=== PATIENT | female | born 1975 | race Caucasian/White ===

== ENCOUNTER 2022-05-16 19:19 | Emergency (ER) | payer MEDICAID, OTHER ==
[~2022-05-16] VITALS: Ht 172.7 cm; Wt 54.4 kg
[2022-05-16 20:13] LABS: Basophils # (auto) 0.2 10 ^3/uL (0-0.2); Basophils % (auto) 1.6 % (0.0-2.0); Eosinophils # (auto) 0.1 10 ^3/uL (0-0.8); Eosinophils % (auto) 1.1 % (0.0-7.0); Hematocrit 44.6 % (36.0-46.0); Hemoglobin 14.7 g/dL (12.2-16.2); Lymphocytes # (auto) 1.6 10 ^3/uL (0.4-5.4); Lymphocytes % (auto) 13.4 % (10.0-50.0); Mean Corpuscular Hemoglobin 27.4 pg (28.0-32.0); Mean Corpuscular Hgb Conc. 32.9 g/dL (32.0-36.0); Mean Corpuscular Volume 83.1 fL (80.0-100.0); Monocytes # (auto) 0.8 10 ^3/uL (0-1.3); Monocytes % (auto) 6.8 % (0.0-12.0); Neutrophils # (auto) 9.1 10 ^3/uL (1.6-8.6); Neutrophils % (auto) 77.1 % (37.0-80.0); Nucleated Red Blood Cells % 0.2 %; Red Blood Cells 5.36 10^6/uL (4.0-5.20); Red Cell Distribution Width 14.9 % (11.8-14.3); White Blood Cell 11.8 10^3/uL (4.4-10.8)
[2022-05-16 20:28] LABS: Albumin 4.3 g/dL (3.4-5.0); Calcium 9.6 mg/dL (8.5-10.1); Magnesium 2.2 mg/dL (1.6-2.6)
[2022-05-16 20:32] LABS: Bilirubin, Total 0.6 mg/dL (0.2-1.0); Total Protein 7.9 g/dL (6.4-8.2)
[2022-05-16 20:42] LABS: Urine Bacteria FEW /hpf (None Seen); Urine Blood TRACE /uL (Negative); Urine Mucus FEW (None Seen); Urine Specific Gravity 1.018 (1.001-1.035); Urine WBC 176 /hpf (0 - 5)
[2022-05-17] MEDS ORDERED: ONDA-144 PO (00:27)
[2022-05-17] MEDS ORDERED: NITR-87 PO (00:27)
[2022-05-17] MEDS ORDERED: PERCOT PO (00:27)
[2022-05-17 00:38] VITALS: BP 151/100
== END 2022-05-17 00:42 | disposition home or self-care (01) ==
LOC: ER 19:19
DX: N39.0 Urinary tract infection, site not specified (principal); F12.90 Cannabis use, unspecified, uncomplicated
CPT/HCPCS: 36415; 71046; 71250; 74176; 80053; 81001; 83735; 84484; 85025; 93005